=== PATIENT | female | born 1950 ===

== ENCOUNTER 2023-11-27 10:59 | Outpatient (OUT) | payer MEDICARE, SELFPAY ==
--- NOTE | 2023-11-27 | XR_ITS ---
[facility] [id number] Patient Name: ANTOINE MURGUIA MRN: [id number] date: 1950 Sex: F Assigned Patient Location: Current Patient Location: Accession/Order Number: [id number] Exam Date: 11/27/2023 11:06 Report Date: 11/27/2023 12:08 At the request of: MANDI AGUIRRE Procedure: XR ankle KALIA min 3V EXAMINATION: XR ankle KALIA min 3V, XR foot KALIA min 3V HISTORY: BILATERAL ANKLE PAIN COMPARISON: No relevant comparison available. FINDINGS: RIGHT FINDINGS: BONES: No acute fracture or dislocation. Moderate plantar enthesopathic spurring of the calcaneus. Moderate degenerative changes along the first second and third tarsometatarsal joints. Moderate to severe degenerative change second metatarsal phalangeal joint SOFT TISSUES: Negative. No visible soft tissue swelling. OTHER: Negative. LEFT FINDINGS: BONES: No acute fracture or dislocation. Moderate plantar enthesopathic spurring of the calcaneus. Mild degenerative changes with joint space narrowing marginal osteophyte formation . Contour deformity and sclerosis of the medial malleolus could represent a remote healed fracture SOFT TISSUES: Negative. No visible soft tissue swelling. OTHER: Negative. XR/XR ankle KALIA min 3V IMPRESSION: RIGHT CONCLUSION: Osteoarthritis LEFT CONCLUSION: Osteoarthritis Electronically authenticated by: CHAD TREJO Date: 11/27/2023 12:08
--- NOTE | 2023-11-27 | XR_ITS ---
[facility] [address] Patient Name: ANTOINE MURGUIA MRN: [id number] date: 1950 Sex: F Assigned Patient Location: Current Patient Location: Accession/Order Number: [id number] Exam Date: 11/27/2023 11:05 Report Date: 11/27/2023 12:08 At the request of: MANDI AGUIRRE Procedure: XR foot KALIA min 3V EXAMINATION: XR ankle KALIA min 3V, XR foot KALIA min 3V HISTORY: BILATERAL ANKLE PAIN COMPARISON: No relevant comparison available. FINDINGS: RIGHT FINDINGS: BONES: No acute fracture or dislocation. Moderate plantar enthesopathic spurring of the calcaneus. Moderate degenerative changes along the first second and third tarsometatarsal joints. Moderate to severe degenerative change second metatarsal phalangeal joint SOFT TISSUES: Negative. No visible soft tissue swelling. OTHER: Negative. LEFT FINDINGS: BONES: No acute fracture or dislocation. Moderate plantar enthesopathic spurring of the calcaneus. Mild degenerative changes with joint space narrowing marginal osteophyte formation . Contour deformity and sclerosis of the medial malleolus could represent a remote healed fracture SOFT TISSUES: Negative. No visible soft tissue swelling. OTHER: Negative. XR/XR foot KALIA min 3V IMPRESSION: RIGHT CONCLUSION: Osteoarthritis LEFT CONCLUSION: Osteoarthritis Electronically authenticated by: CHAD TREJO Date: 11/27/2023 12:08
== END 2023-11-27 11:00 | disposition home or self-care (01) ==
PROVIDERS: Visit Provider Podiatrist Foot & Ankle Surgery
DX: M79.672 Pain in left foot (principal); M79.671 Pain in right foot; M25.571 Pain in right ankle and joints of right foot; M25.572 Pain in left ankle and joints of left foot; M19.072 Primary osteoarthritis, left ankle and foot; M19.071 Primary osteoarthritis, right ankle and foot
CPT/HCPCS: 73610; 73630